=== PATIENT | female | born 1940 | race Caucasian/White ===

== ENCOUNTER 2017-03-24 11:52 | Observation (INO) | payer OTHER ==
[~2017-03-24] VITALS: Ht 167.6 cm; Wt 73.0 kg
[2017-03-24 12:33] LABS: EOSINOPHIL (%) 2.2 % (0-5); EOSINOPHIL COUNT 0.2 K/uL (0-0.3); HEMATOCRIT 39.7 % (36.0-46.0); IMMATURE GRANULOCYTE (%) 0.3 % (0.0-0.7); INSTRUMENT ABS NEUTROPHIL CT 2.7 K/uL; LYMPHOCYTE COUNT 3.8 K/uL (1.0-2.8); MCH 28.8 PG (29.0-34.0); MCHC 32.5 G/DL (30.0-36.0); MCV 88.6 FL (83-99); MEAN PLAT.VOLUME 9.9 uM^3 (9.5-12.4); MONOCYTE (%) 10.1 % (3-12); MONOCYTE COUNT 0.8 K/uL (0-0.8); NEUTROPHIL (%) 36.4 % (45-76); NEUTROPHIL COUNT 2.7 K/uL (1.8-6.4); PLATELET COUNT 176 K/uL (156-360); RBC DIS.WIDTH-CV 12.6 % (11.8-14.6); RBC DIS.WIDTH-SD 41.1 % (39-53); RED BLOOD COUNT 4.48 M/uL (3.80-5.20); WHITE BLOOD COUNT 7.4 K/uL (4.1-10.2)
[2017-03-24 12:48] LABS: CHLORIDE 104 mEq/L (99-109); POTASSIUM 3.9 mEq/L (3.7-5.4); SODIUM 140 mEq/L (136-147)
[2017-03-24 12:50] LABS: GLUCOSE 118 mg/dL (70-99)
[2017-03-24 12:51] LABS: ANION GAP 9 MEQ/L (2-14)
[2017-03-24 12:54] LABS: GFR ESTIMATE (CALCULATED) > 59 mL/min/; UREA NITROGEN (BUN) 21 mg/dL (9-23)
[2017-03-24 12:58] LABS: TROP-I INTERPRETATION NEGATIVE; TROPONIN-I < 0.01 ng/mL (0.0-0.30)
[2017-03-24] MEDS ORDERED: PRAVASTATIN SOD40 MG PO (13:44)
[2017-03-24] MEDS ORDERED: AMLODIPINE-BEN1 EAC3 PO (13:44)
[2017-03-24] MEDS ORDERED: DULOXETINE HCL30 MG PO (13:44)
[2017-03-24] MEDS ORDERED: DONEPEZIL HCL10 MG PO (13:45)
[2017-03-24] MEDS ORDERED: IPRATROPIUM BRO30 ML BOTH NARES (13:45)
[2017-03-24] MEDS ORDERED: ROPINIROLE HC0.25 MG PO (13:45)
[2017-03-24] MEDS ORDERED: ASPIR-LOW81 MG PO (13:46)
[2017-03-24] MEDS ORDERED: MULTI VITAMIN1 EACH PO (13:46)
[2017-03-24] MEDS ORDERED: PRESERVISION T1 EACH PO (13:46)
[2017-03-24 17:12] VITALS: BP 123/68
[2017-03-24 17:13] VITALS: BP 111/58; BP 120/83
[2017-03-24 19:06] LABS: ANION GAP 8 MEQ/L (2-14); CHLORIDE 106 MEQ/L (99-109); GFR ESTIMATE (CALCULATED) > 59 mL/min/; GLUCOSE 127 mg/dL (70-99); POTASSIUM 4.1 MEQ/L (3.7-5.4); SAMPLE HEMOLYSIS CHECK 0; SAMPLE ICTERIC CHECK 0; SAMPLE LIPEMIA CHECK 0; SODIUM 141 MEQ/L (136-147); UREA NITROGEN (BUN) 16 mg/dL (9-23)
[2017-03-24 19:40] VITALS: BP 121/61
[2017-03-24 23:27] VITALS: BP 117/79
[2017-03-25 03:45] VITALS: BP 139/63
[2017-03-25 06:12] LABS: EOSINOPHIL (%) 3.3 % (0-5); EOSINOPHIL COUNT 0.2 K/uL (0-0.3); HEMATOCRIT 36.1 % (36.0-46.0); IMMATURE GRANULOCYTE (%) 0.2 % (0.0-0.7); INSTRUMENT ABS NEUTROPHIL CT 2.6 K/uL; LYMPHOCYTE COUNT 2.8 K/uL (1.0-2.8); MCH 28.9 PG (29.0-34.0); MCV 87.6 FL (83-99); MEAN PLAT.VOLUME 10.1 uM^3 (9.5-12.4); MONOCYTE (%) 11.3 % (3-12); MONOCYTE COUNT 0.7 K/uL (0-0.8); NEUTROPHIL (%) 40.9 % (45-76); NEUTROPHIL COUNT 2.6 K/uL (1.8-6.4); PLATELET COUNT 158 K/uL (156-360); RBC DIS.WIDTH-CV 12.5 % (11.8-14.6); RBC DIS.WIDTH-SD 40.1 % (39-53); RED BLOOD COUNT 4.12 M/uL (3.80-5.20); WHITE BLOOD COUNT 6.4 K/uL (4.1-10.2)
[2017-03-25 06:36] LABS: ALKALINE PHOSPHATASE 58 IU/L (3-129); ANION GAP 8 MEQ/L (2-14); CHLORIDE 109 MEQ/L (99-109); DIRECT BILIRUBIN 0.2 mg/dL (0.0-0.3); GFR ESTIMATE (CALCULATED) > 59 mL/min/; GLUCOSE 98 mg/dL (70-99); POTASSIUM 4.1 MEQ/L (3.7-5.4); SAMPLE HEMOLYSIS CHECK 0; SAMPLE ICTERIC CHECK 0; SAMPLE LIPEMIA CHECK 0; SODIUM 145 MEQ/L (136-147); TOTAL BILIRUBIN 1.1 MG/DL (0.0-1.0); UREA NITROGEN (BUN) 14 mg/dL (9-23)
[2017-03-25 07:14] VITALS: BP 142/72
[2017-03-25 09:27] VITALS: BP 156/67
[2017-03-25 09:28] VITALS: BP 141/76; BP 155/72
[2017-03-25 12:26] VITALS: BP 138/75
== END 2017-03-25 14:30 | disposition home or self-care (01) ==
LOC: EME 11:52 → EDOF 13:57 → 5WEST 13:57 → ENRESERV 13:59 → EDOF 14:03 → ENRESERV 14:05 → 5WEST 16:55 → ENPENDDIS 03-25 → 5WEST 03-25 14:30
PROVIDERS: Emergency Medicine; Hospitalist
PROC: 0HQ1XZZ Repair Face Skin, External Approach (ICD-10-PCS; principal; 2017-03-24)
DX: R55 Syncope and collapse (principal); S01.111A Laceration without foreign body of right eyelid and periocular area, initial encounter; W18.09XA Striking against other object with subsequent fall, initial encounter; Y93.89 Activity, other specified; Y92.238 Other place in hospital as the place of occurrence of the external cause; Y99.2 Volunteer activity; M54.5 Low back pain; E11.9 Type 2 diabetes mellitus without complications; I10 Essential (primary) hypertension; E78.5 Hyperlipidemia, unspecified; Z96.652 Presence of left artificial knee joint; Z85.42 Personal history of malignant neoplasm of other parts of uterus; Z85.828 Personal history of other malignant neoplasm of skin; Z88.8 Allergy status to other drugs, medicaments and biological substances
CPT/HCPCS: 70450; 70551; 71010; 80048; 80048 91; 80076; 84443; 84484; 85025; 93005; 93306; 93880; 99281; 99284; G0378; J7030